=== PATIENT | female | born 1965 | race Caucasian/White ===

== ENCOUNTER 2017-08-10 15:14 | Outpatient (CLI) | payer BC ==
[2017-08-10 16:57] LABS: PTT 27.4 SEC (22.9-36.1); Prothrombin Time 13.1 SEC (12.0-14.7)
== END 2017-08-10 15:15 | disposition home or self-care (01) ==
LOC: LABBT 15:14
PROVIDERS: ATTEND Neurological Surgery
DX: Z01.812 Encounter for preprocedural laboratory examination (principal); M54.12 Radiculopathy, cervical region
CPT/HCPCS: 85610; 85730

== ENCOUNTER 2017-08-20 07:03 | Day surgery (SDC) | payer BC ==
[2017-08-10 15:34] VITALS: BMI 25.4
--- NOTE | 2017-08-19 21:52 | HP ---
NEUROSURGERY H AND P CHIEF COMPLAINT: Neck pain. HISTORY OF PRESENT ILLNESS: Ms. Shaw comes to the office with weeks of terrible neck pain radiatin g to the left arm. This came on overnight, and in the morning, there was severe shoulder pain on the left side. Over 2-3 days, it radiated to the arm and head. She was miserable and not able to care for her grandchildren, Tylenol 3, gabapentin, cervical DAVID injections, all helped somewhat, but the p ain remains. She is a unsure about any weakness, as she has not been using that arm. The hand feels fine. There is no imbalance and no bowel or bladder issues. REVIEW OF SYSTEMS: Ten point review of systems has been completed and otherwise negative than stated above in the HPI. PAST MEDICAL HISTORY: Patient has no other medical history healthy. PAST SURGICAL HISTORY: Appendectomy at age 36. FAMILY HISTORY: Father is . Mother is alive. Children are alive. SOCIAL HISTORY: Patient is a nonsmoker, does not drink alcohol or use any other illicit drugs. She is a parttime bilingual administrative assistant. She is with 2 children. MEDICATIONS: Gabapentin, Tylenol #3, metaxalone. ALLERGIES: No known drug allergies. PHYSICAL EXAMINATION: GENERAL: Confusion, patient is alert and oriented, no signs of distress. HEENT: Head, atraumatic, normocephalic. ENT, eyes equal, round, reactive to light. Hearing is inta ct. Moist mucous membranes. PULMONARY: Normal work of breathing room air. CARDIOVASCULAR: Regular rate and rhythm. S1, S2. NEUROLOGIC: Cranial nerves are grossly intact. Cerebellar exam: There is no truncal ataxia. Gait and station are normal. Toe heel and tandem walking are performed smoothly without weakness or aprax ia. Romberg is negative. Motor exam 4-/5 strength in the left triceps, 4/5 in SE. The deltoids, bi ceps, wrist extension, and interossei are normal. Sensory exam: There is no dermatomal sensory loss in C5, C6, C7, C8 or T1. Reflex exam absent, left triceps reflex diminished BI/BR on the left as we ll. No clonus. SPINE: Decreased active range of motion in rotation of neck. ASSESSMENT: Cervical disk disorder at C5-C6 with radiculopathy. Dr. Fermin has offered ACDF at C5-C6. PLAN: We have discussed indications, risks, benefits, and alternatives, and expected results from ismael shabazz. The risks discussed include but are not limited to bleeding, infection, CSF leak, nerve damag e, weakness, swallowing trouble feeding, tube placement, tracheal injury, esophageal injury, vocal co rd injury, spinal cord injury, incontinence, paralysis, ventilator dependent wheelchair dependent, st roke, loss of vision, carotid artery injury, jugular vein injury, hardware, bowel displacement cardio pulmonary complications of anesthesia or long-term complications discussed included, but are no t limited to hardware failure and degeneration of surrounding disks. She understands the risks and i s willing to move forward or move forward with surgery.
[2017-08-20] MEDS ORDERED: CEFAZOLIN/Water 2 GM/20 ML SYRINGE ONE ×2 (07:30→16:33)
[2017-08-20] MEDS ORDERED: Sodium Chloride 0.9% 10 ML ONE ×2 (09:03→16:33)
[2017-08-20] MEDS ORDERED: Thrombin 5000 UNITS/5 ML VIAL ONE (09:03)
[2017-08-20] MEDS ORDERED: Fentanyl 100 MCG/2 ML VIAL ONE ×2 (10:28→13:52)
[2017-08-20] MEDS ORDERED: Ondansetron HCl/PF 4 MG/2 ML Vial IVP PRN (13:08)
[2017-08-20] MEDS ORDERED: Promethazine HCl 25 MG/ML VIAL IM PRN (13:08)
[2017-08-20] MEDS ORDERED: HYDROmorphone 2 MG/ML VIAL SLOW IVP PRN (13:08)
[2017-08-20] MEDS ORDERED: Promethazine HCl 25 MG/ML VIAL SLOW IVP PRN (13:08)
[2017-08-20] MEDS ORDERED: Morphine Sulfate 2 MG/ML SYRINGE SLOW IVP PRN (13:08)
[2017-08-20] MEDS ORDERED: Meperidine HCl/PF 25 MG/ML VIAL SLOW IVP PRN (13:08)
--- NOTE | 2017-08-20 13:35 | OP ---
DATE OF OPERATION: 08/20/2017 SURGEON: Ramon Fermin M.D. OFFICE NURSE PRACTITIONER: Elvia Rhodes PA-C. PREOPERATIVE INDICATION: Treat pain, prevent neurological deterioration. PREOPERATIVE DIAGNOSES: Cervical intervertebral disk disease with left-sided radiculopathy C7 greate r than C6. POSTOPERATIVE DIAGNOSES: Cervical intervertebral disk disease with left-sided radiculopathy C7 great er than C5-C6. OPERATIVE PROCEDURE: Anterior cervical diskectomy, intervertebral arthrodesis, placement of interver tebral biomechanical device, anterior cervical plating C5-C6 and C6-C7. Local morselized autograft, morselized allograft, operating microscope. PREOPERATIVE MEDICATION: Ancef 2 grams IV. DRAIN NUMBER: Zero. DRAIN TYPE: None. OPERATIVE DICTATION: The patient was brought to the operating room. General endotracheal anesthesia was induced. The patient was carefully positioned on the operating table with her head supported by gel-filled donut shaped head rest and a lateral fluoro radiograph was used to plan our incision. Th e right side of the neck was sterilely prepped and draped. We opened our incision with a 10 blade kn sae and controlled bleeding with bipolar cautery. We dissected sharply to the platysma and we cut th is muscle in line with our incision. We continued our dissection medial to the sternocleidomastoid a nd lateral to the trach and esophagus. We arrived at the prevertebral space. We placed a marker at C5-C6 and took a lateral fluoro radiograph to confirm the levels upon which we were operating. We th en elevated the longus colli muscles of the anterior surface of C5, C6, and C7, and placed self-retai [place] retractors beneath them. We placed distraction pins at C5 and C7 and distracted across both of the intervening interspaces. We incised those interspaces with a 15 blade knife and removed disk con tents using curettes and rongeurs. As we approached the posterior longitudinal ligament, we brought the operating microscope in the field. Under microscopic magnification and using microsurgical techniques, we removed the remainder of the i ntervertebral disk. We removed posterior osteophytes at C5-C6 and C6-C7 and we accessed the ventral epidural space with a micro curette. We removed the posterior longitudinal ligament across the entir e interspace and osteophytes along with that at C5-C6 and C6-C7. We widely opened each foramina. We ensured decompression of the C6 and C7 nerve roots bilaterally. There was fresh disk herniation in the axilla of the C7 nerve root on the left side and this was removed as well. We irrigated with janelle itracin irrigation. We turned our attention to arthrodesis. Using curettes, we prepared the endplates for grafting. The cartilaginous cap was further removed an d both the interspaces with a bone rasp, which was used to measure the height of each interspace to 6 mm. The posterior osteophytes were carefully cleaned of their soft tissue attachments and morselize d into demineralized bone matrix as our fusion substrate. The substrate was packed into 2 separate P SILETZ TRIBE intervertebral grafts. These grafts, after loading with our fusion substrate, were advanced into the respective interspaces under radiographic guidance to the appropriate depth. Distraction pins w ere removed and the operative microscope taken back out of the field. We brought a 28 mm anterior cervical plate into the field. We drilled state pilot holes through the plate with a 12 mm drill bit and we affixed the plate using 14 mm screws. We used variable angle screws ab ove and fixed angle screws at C7. We engaged the locking mechanism over each of the 6 screws. AP an d lateral fluoro radiographs confirmed adequate positioning of our instrumentation. We irrigated mass spectroscopist iously with bacitracin irrigation. Hemostasis was excellent. We closed the wound in anatomic layers . We applied a sterile dressing. This was a clean case and no contamination.
[2017-08-20] MEDS ORDERED: Dexamethasone 20 MG/5 ML VIAL ONE (15:04)
[2017-08-20] MEDS ORDERED: ePHEDrine/0.9% NaCl/PF SYRINGE 50 mg/10 ml ONE (15:04)
[2017-08-20] MEDS ORDERED: Glycopyrrolate 0.2 MG/ML 5 ML SYRINGE ONE (15:04)
[2017-08-20] MEDS ORDERED: Lidocaine 1% PF 5 ML VIAL ONE ×2 (15:04)
[2017-08-20] MEDS ORDERED: PROPOFOL 200 MG/20 ML VIAL ONE (15:04)
[2017-08-20] MEDS ORDERED: Ondansetron HCl/PF 4 MG/2 ML Vial ONE (15:04)
[2017-08-20] MEDS ORDERED: HYDROcodone/Acetaminophen 5/325 mg Tablet ONE (15:56)
== END 2017-08-20 17:40 | disposition home or self-care (01) ==
LOC: SDC 07:03
PROVIDERS: ATTEND Neurological Surgery
PROC: 0RG20A0 Fusion of 2 or more Cervical Vertebral Joints with Interbody Fusion Device, Anterior Approach, Anterior Column, Open Approach (ICD-10-PCS; principal; 2017-08-20)
PROC: 0RG2070 Fusion of 2 or more Cervical Vertebral Joints with Autologous Tissue Substitute, Anterior Approach, Anterior Column, Open Approach (ICD-10-PCS; principal; 2017-08-20)
PROC: 0RT30ZZ Resection of Cervical Vertebral Disc, Open Approach (ICD-10-PCS; principal; 2017-08-20)
DX: M50.122 Cervical disc disorder at C5-C6 level with radiculopathy (principal); Z79.899 Other long term (current) drug therapy; Z88.1 Allergy status to other antibiotic agents
CPT/HCPCS: 76001; 96374; 96375; A4216; C1713; C1776; J0131; J1100; J2001; J2405; J2704; J3010; J3490

== ENCOUNTER 2017-10-23 13:29 | Outpatient (CLI) | payer BC ==
--- NOTE | 2017-10-23 15:09 | RAD ---
CERVICAL SPINE THREE VIEWS: 10/23/17 HISTORY: Followup cervical fusion. COMPARISON: 10/22/07. FINDINGS: Three views cervical spine demonstrate anterior fusion plate with transvertebral body screw at C5, C 6, and C7. No perihardware lucency. There is a disc prosthesis at C5-C6 and C6-C7. Straightening of n ormal cervical lordosis with grade I anterolisthesis of C4 upon C5. Predental space is normal. Limited evaluation of the odontoid process on the open mouth projection. Lateral masses of C1 and 2 a rticular appropriately. Appropriate articulation of facets. There is evidence of facet hypertrophy. IMPRESSION: Uncomplicated cervical fusion from C5 through C7. POS: [facility]
== END 2017-10-23 13:30 | disposition home or self-care (01) ==
LOC: TBSIIMAG 13:29
PROVIDERS: ATTEND Neurological Surgery
DX: M54.12 Radiculopathy, cervical region (principal); Z98.1 Arthrodesis status
CPT/HCPCS: 72040